=== PATIENT | male | born 1985 | race Caucasian/White ===

== ENCOUNTER 2017-06-25 04:38 | Emergency (ER) | payer OTHER ==
[~2017-06-25] VITALS: Ht 170.2 cm; Wt 108.9 kg
[2017-06-25 04:41] VITALS: BP 143/83
[2017-06-25] MEDS ORDERED: IBUPROFEN 200 MG TABLET ONE (04:59)
[2017-06-25] MEDS ORDERED: IBUPROFEN 400 MG TABLET PO ONE (05:00)
[2017-06-25] MEDS ORDERED: IBUPROFEN 600 MG TABLET PO ONE (05:00)
== END 2017-06-25 05:10 | disposition home or self-care (01) ==
LOC: ER 04:39
DX: L72.0 Epidermal cyst (principal); F17.200 Nicotine dependence, unspecified, uncomplicated; Z60.2 Problems related to living alone
CPT/HCPCS: A4606; Z7610